=== PATIENT | female | born 1975 | race Caucasian/White ===

== ENCOUNTER 2017-01-17 23:20 | Emergency (ER) | payer OTHER ==
[2017-01-18 03:57] VITALS: BP 110/75
== END 2017-01-18 03:57 | disposition home or self-care (01) ==
LOC: ED 23:20
DX: M54.5 Low back pain (principal); G89.29 Other chronic pain; G43.909 Migraine, unspecified, not intractable, without status migrainosus; Z79.1 Long term (current) use of non-steroidal anti-inflammatories (NSAID)
CPT/HCPCS: J1170; J1885; Q0162

== ENCOUNTER 2017-02-24 18:05 | Emergency (ER) | payer OTHER ==
[~2017-02-24] VITALS: Ht 160 cm; Wt 65.8 kg
[2017-02-24 22:09] VITALS: BP 107/70
== END 2017-02-24 22:09 | disposition home or self-care (01) ==
LOC: ED 18:05
DX: F41.1 Generalized anxiety disorder (principal); G43.909 Migraine, unspecified, not intractable, without status migrainosus
CPT/HCPCS: 82962; J2060; J2270; J2405; Q0092

== ENCOUNTER 2017-07-21 18:00 | Emergency (ER) | payer OTHER ==
[~2017-07-21] VITALS: Ht 162.6 cm; Wt 70.3 kg
[2017-07-21 18:17] VITALS: Ht 162.6 cm; Wt 70.3 kg
[2017-07-21 21:25] VITALS: BP 118/80
== END 2017-07-21 22:04 | disposition home or self-care (01) ==
LOC: ED 18:00
DX: G43.909 Migraine, unspecified, not intractable, without status migrainosus (principal)
CPT/HCPCS: J1885

== ENCOUNTER 2017-07-30 10:24 | Emergency (ER) | payer OTHER ==
[~2017-07-30] VITALS: Ht 162.6 cm; Wt 70.8 kg
[2017-07-30 10:34] VITALS: Ht 162.6 cm; Wt 70.8 kg
[2017-07-30 13:00] VITALS: BP 126/83
== END 2017-07-30 13:05 | disposition home or self-care (01) ==
LOC: ED 10:24
DX: R51 Headache (principal)
CPT/HCPCS: J0780; J1170; J1885